=== PATIENT | female | born 1965 | race Caucasian/White ===

== ENCOUNTER 2016-03-10 22:46 | Emergency (ER) | payer SELFPAY ==
[2016-03-10] MEDS ORDERED: ASPIRIN 81 MG TAB.CHEW ONE ×2 (22:54→22:55)
[2016-03-10] MEDS ORDERED: ASPIRIN 81 MG TAB.CHEW PO ONE (22:57)
[2016-03-10 23:13] LABS: Hematocrit 40.6 % (37.0-47.0); Hemoglobin 13.7 gm/dL (12.5-16.0); Mean Cell Volume 86.9 fl (78-100); Mean Corpuscular Hemoglobin 29.3 pg (27-31); Mean Corpuscular Hgb Conc 33.7 g/dl (32-36); Mean Platelet Volume 8.7 fl (6.0-9.5); Neutrophil # 2.5 K/mm3 (1.3-6.0); Neutrophil % 39.6 % (42-75.0); Platelet Count 259 K/mm3 (150-450); Red Blood Count 4.67 M/mm3 (4.2-5.4); Red Cell Distribution Width 13.1 % (11.5-14.0); White Blood Count 6.3 K/mm3 (4.0-10.5)
--- NOTE | 2016-03-10 23:20 | ERNOTE ---
Chest Pain/Cardiac HPI Time Seen by Provider: 03/10/16 22:57 Source: patient Exam Limitations: no limitations Immunizations: IMMUNIZATION HX Immunizations Up to Date Yes History of Influenza Vaccine No Hx Pneumococcal Vaccination No Allergies/Adverse Reactions: Allergies ibuprofen Adverse Reaction (Severe, Verified 09/26/12 13:46) Itching Home Medications: HOME MEDICATIONS ALPRAZolam [Xanax (Alprazolam)] 0.5 mg PO HS 09/26/12 [Last Taken Unknown] Carvedilol [Coreg] 3.125 mg PO BID 03/10/16 [Last Taken Unknown] Cyclobenzaprine HCl [Flexeril] 10 mg PO TID PRN 03/10/16 [Last Taken Unknown] Narrative: Patient woke up three times this morning before getting up at 04:30 with episodes of shortness of breath lasting a few minutes. While at work at 08:00 she started to have episodes of sharp left sided chest pain lasting a few seconds, going down her arm and associated with shortness of breath as well, no definite alleviating or aggravating factors. Denies any long car rides, cancer, or being bedrest She had similar symptoms a few years ago and was diagnosed with an heart problems that she doesn't know the name for, it has something to do with a fast heart rate and she is on a beta vannessa. She has not seen the heart doctor in three years. She has been under a lot of stress recently as her was diagnosed wit leukemia Date (Duration): 03/10/16 Time (Timing): 02:00 Timing: intermittent, resolved prior to arrival Severity/Quality: sharp Location: left chest Chest Pain Radiation: arms Activities at Onset: none Modifying Factors - Improves: Present: nothing Modifying Factors - Worsens: Present: nothing Nitro Today/Relief: no nitro taken today Aspirin Treatment Today: 81 mg x 1 Associated Symptoms: Present: palpitations - pounding heart beat. Absent: headache, dizziness, syncope Prior Chest Pain/Cardiac Workup: Reports: prior chest pain Prior Treatment: Denies: recently seen, treated by physician, recently hospitalized, currently on antibiotics Review of Systems - Review of Systems Constitutional: Absent: recent illness, fever ENT: Absent: nose congestion, sore throat Respiratory: Present: See HPI Cardiology: Present: See HPI Gastrointestinal/Abdominal: Absent: nausea, vomiting, abdominal pain Genitourinary: Present: no symptoms reported Musculoskeletal: Absent: neck pain Skin: Absent: rash Neurological: Absent: headache - Patient's Past Medical History Patient History - Medical: Anxiety, Depression Patient History - Cardiac/Respiratory: Arrhythmias Patient History - Cancer: No Hx of Cancer Patient History - Surgical Procedures: LMP (females 10-50): Menopausal - Social History Living Situations: alone Smoking Status: Current every day smoker Have you smoked in the past 12 months: Yes Do you dip or chew tobacco: No Patient requests Smoking Cessation Consult: No Initiate information on Smoking Cessation: No Alcohol Use: none Drug Use: none Physical Exam - Physical Exam General Appearance: Present: wd/wn, alert, mild distress, anxious Eye Exam: Normal inspection: bilateral, PERRL: bilateral Ears, Nose, Throat: Present: normal pharynx Respiratory: Present: no respiratory distress, normal breath sounds, no accessory muscle use, lungs clear, chest tenderness - under left breast over ribs Cardiovascular/Chest: Present: regular rate, rhythm, no murmur Gastrointestinal/Abdominal: Present: normal bowel sounds, nontender, nondistended, soft Extremity Exam: Present: no edema Neurological Exam: Present: alert, oriented, normal mood/affect Skin Exam: Present: normal color, warm/dry ED Progress - Results and Orders Patient's Lab Results:: I have reviewed the patient's lab results. - Vital Signs Patient's Vital Signs:: I have reviewed the patient's vital signs. Vital Signs: Vital Signs 03/10/16 22:49 Temperature 36.3 C L Pulse Rate 93 Respiratory 21 H Rate Blood Pressure 150/89 O2 Sat by Pulse 100 Oximetry - EKG EKG: NSR, RBBB - incomplete, nonspecific ST T wave changes, unchanged from 2012 EKG read: Interp. by me - X-Ray X-Ray #1 X-Ray: chest - no acute changes Interpretation: Interp. by me - Progress/Reassessment Progress Note-Subjective: 03/11/16 00:06 patient feeling better, explained results and limits of test to completely rule our cardiac disease Departure - Departure Clinical Impression: Acute chest wall pain, Anxiety Condition: Good Instructions: Chest Wall Pain, [id number] Additional Instructions: call your tube teller for follow up consider counselling to help you with your anxiety Referrals: Estela Peck APN [Other] -
[2016-03-10 23:26] LABS: Prothrombin Time (Patient) 9.8 Seconds (9.4-11.4)
[2016-03-10 23:31] LABS: INR 0.94 INR (0.90-1.10)
[2016-03-10 23:33] LABS: ALT 54 U/L (19-67); AST 28 U/L (0-48); Albumin * 3.8 gm/dl (3.4-5.0); Alkaline Phosphatase * 131 U/L (50-170); Anion Gap 12.3 mmol/L (6.8-13.8); BUN/Creatinine Ratio 18.1 (9.0-21.6); Bilirubin, Total 0.3 mg/dL (0.0-1.1); Blood Urea Nitrogen 23 mg/dL (3-23); Calcium * 9.2 mg/dL (7.9-10.9); Chloride 104 mmol/L (97-106); Glucose * 90 mg/dL (70-110); Potassium 4.3 mmol/L (3.4-4.6); Sodium 140 mmol/L (132-142); Total Protein 7.8 gm/dL (6.2-8.2); Troponin I Less than 0.017 ng/ml (0.00-0.10)
[2016-03-11 00:44] VITALS: BP 129/61
== END 2016-03-11 00:10 | disposition home or self-care (01) ==
LOC: ER 22:46
DX: R07.89 Other chest pain (principal); F41.1 Generalized anxiety disorder; F17.210 Nicotine dependence, cigarettes, uncomplicated; Z78.0 Asymptomatic menopausal state